=== PATIENT | female | born 1960 | race Caucasian/White ===

== ENCOUNTER 2020-12-30 17:10 | Inpatient (IN) | payer BC ==
[~2020-12-30] VITALS: Ht 157.5 cm; Wt 68.0 kg
[2020-12-30] MEDS ORDERED: ONDANSETRON HCL/PF 4 MG/2 ML VIAL ONE (17:25)
[2020-12-30] MEDS ORDERED: DEXAMETHASONE SOD PHOSPHATE 10 MG/ML VIAL ONE (17:25)
[2020-12-30] MEDS ORDERED: IV NS 0.9% 1,000 ML BAG IV ONE (17:30)
[2020-12-30] MEDS ORDERED: ONDANSETRON HCL/PF 4 MG/2 ML VIAL IVP ONE (17:30)
[2020-12-30] MEDS ORDERED: DEXAMETHASONE SOD PHOSPHATE 6 MG in IV D5W 50 ML IV ONE (17:30)
--- NOTE | 2020-12-30 17:48 | NUR ---
MABLE FROM HOME TO ER BED 5. AAOX4. NOT IN RESP DISTRESS BUT NOTED SATTING @ 92% ON RA. BROUGHT IN FOR WEAKNESS. PER PT, SHE HAS BEEN COVID POSITIVE SINCE SATURDAY LAST WEEK. PT IS HERE BECAUSE SHE IS CONCERNED THAT SHE MIGHT BE DEHYDRATED. PT IS NOTED TACHYCARDIC 110S. WAS AT THE BEDSIDE FOR EVAL. ORDERS RECEIVED, NOTED AND CARRIED OUT.
[2020-12-30 17:56] LABS: BASOPHILS # (AUTO) 0.1 K/uL (0.0-0.2); BASOPHILS % (AUTO) 1.8 % (0.0-2.0); HEMATOCRIT 36 % (33-45); HEMOGLOBIN 12.5 g/dL (11.5-14.8); LYMPHOCYTES # (AUTO) 0.7 K/uL (0.8-4.8); LYMPHOCYTES % (AUTO) 14.1 % (20.0-44.0); MEAN CORPUSCULAR HGB CONC 35 g/dl (31.0-36.0); MEAN CORPUSCULAR VOLUME 86 fL (82-100); MONOCYTES # (AUTO) 0.3 K/uL (0.1-1.30); MONOCYTES % (AUTO) 6.8 % (2.0-12.0); NEUTROPHILS # (AUTO) 3.6 K/uL (1.8-8.9); NEUTROPHILS % (AUTO) 77.3 % (43.0-81.0); PLATELET COUNT (AUTO) 194 K/uL (150-450); RED BLOOD CELL COUNT(AUTO) 4.22 MIL/uL (4.0-5.2); WHITE BLOOD COUNT (AUTO) 4.6 K/uL (4.3-11.0)
[2020-12-30 18:08] LABS: ALBUMIN 3.3 g/dL (3.4-5.0); BILIRUBIN,TOTAL 0.7 mg/dL (0.2-1.0); CALCIUM, SERUM 8.8 mg/dL (8.5-10.1); TOTAL PROTEIN, SERUM 7.7 g/dL (6.4-8.2)
[2020-12-30] MEDS ORDERED: AZITHROMYCIN 500 MG in IV D5W 250 ML IV ONE (19:00)
--- NOTE | 2020-12-30 19:01 | NUR ---
PT WAS AMBULATED AROUND THE ROOM ON ROOM AIR TO CHECK IF PT'S O2 WILL DROP. PT WAS NOTED HAVING O2 SAT OF LOW 86% ON RA. MD MADE AWARE OF FINDINGS. PT PLACED ON O2 VIA NC AND NOW SATTING @ 94-95%. WILL CONTINUE TO MONITOR
[2020-12-30] MEDS ORDERED: ENOXAPARIN SODIUM 80 MG/0.8 ML DISP.SYRIN SQ SCH ×2 (19:15→19:16)
--- NOTE | 2020-12-30 19:24 | NUR ---
blood drawn at bedside including blood culture.
--- NOTE | 2020-12-30 19:25 | NUR ---
DR. UNDERWOOD PAGED PER ABBY LANE ORDER.
[2020-12-30] MEDS ORDERED: ENOXAPARIN SODIUM 80 MG/0.8 ML DISP.SYRIN SQ ONE (19:30)
--- NOTE | 2020-12-30 19:34 | NUR ---
ABBY LANE TALKING TO DR. UNDERWOOD REGARDING PT ADMISSION.
--- NOTE | 2020-12-30 19:37 | NUR ---
RT NORMA PERFORMED, INSURANCE UNDERWRITING ASSISTANTDEREK POWELL AND DR MÁRQUEZ INFORMED OF RESULTS.
--- NOTE | 2020-12-30 19:45 | NUR ---
[place], [facility] - [phone]
--- NOTE | 2020-12-30 19:56 | NUR ---
FLU SWAB DONE AND SENT TO LAB
[2020-12-30 19:58] LABS: ABG BASE EXCESS -1.4 mmol/L; ABG OXYGEN SATURATION 93.7 % (92.0-98.5); ABG PCO2 32.9 mmHg (35.0-45.0); ABG PH 7.444 (7.350-7.450); ABG PO2 72.5 mmHg (75.0-100.0); AaDO2 88.3 mmHg; COHb 0.3 % (0.5-1.5); MetHb 0.4 % (0.0-1.5); SITE, ABG Right Radial; VENT MODE, BG NASAL CANNULA
[2020-12-30] MEDS ORDERED: ACETAMINOPHEN ES 500 MG TABLET ONE (19:58)
[2020-12-30] MEDS ORDERED: ACETAMINOPHEN ES 500 MG TABLET PO ONE (20:00)
--- NOTE | 2020-12-30 20:00 | NUR ---
PT VERBALIZED THAT SHE FEELS HE IS HAVING A FEVER. UPON CHECKING TEMP, ORAL TEMP WAS NOTD @ 102.0. MADE AWARE AND OBTAINED ORDER FOR TYLENOL. NOTED AND CARRIED OUT
[2020-12-30 20:17] LABS: D-DIMER 0.36 mg/L(FEU (0.17-0.50)
[2020-12-30 20:22] LABS: BILIRUBIN,URINE Negative (NEGATIVE); COLOR,URINE YELLOW (YELLOW); LEUKOCYTE ESTERASE ,URINE Negative (NEGATIVE); NITRITE, URINE Negative (NEGATIVE); PH,URINE 5.5 (5.0-8.0); PROTEIN,URINE 30 mg/dl (NEGATIVE); UGLUCOSE Negative (NEGATIVE); UROBILINOGEN,URINE 0.2 EU/dL (0.2)
[2020-12-30 20:30] LABS: BACTERIA,URINE Rare /HPF (None Seen); RBC,URINE NONE SEEN /HPF (0-2); SQUAMOUS EPITHELIAL CELL,UR Few /HPF (None Seen); WBC,URINE NONE SEEN /HPF (0-3)
[2020-12-30 20:37] LABS: CREATINE KINASE, TOTAL 39 U/L (26-192); FERRITIN 288 ng/mL (8-388)
--- NOTE | 2020-12-30 21:20 | NUR ---
TELE 105
[2020-12-30 21:24] LABS: C-REACTIVE PROTEIN 6.2 mg/dL (0.0-0.9)
--- NOTE | 2020-12-30 21:51 | NUR ---
RN NOTES RECEIVED ER ADMISSION REPORT FROM DEREK POWELL. ALL PERTINENT ADMISSION INFO REGARDING PT NOTED. WILL WAIT FOR PT TO BE TRANSFERRED TO UNIT AND ADDRESS NEEDS ACCORDINGLY. ESCALATOR INSTALLER MADE AWARE.
--- NOTE | 2020-12-30 21:52 | NUR ---
REPORT GIVEN TO DEREK LAKHANI FOR LUISA
--- NOTE | 2020-12-30 22:05 | NUR ---
RN NOTES RECEIVED PT FROM ER VIA [place] ACCOMPANIED BY 2 ER STAFF AND PT ASSISTED GOING TO BED . PT IS A&OX4 AND AMBULATORY; PATIENT ON 4L OF 02 VIA NC WITH RESPIRATIONS EVEN AND UNLABORED. COMPREHENSIVE PHYSICAL ASSESSMENT AND PATIENT CARE DONE. CALL LIGHT WITHIN REACH, SAFETY MEASURES AND ISOLATION PRECAUTION IN PLACE, WILL CONTINUE MONITOR AND ASSESS THROUGHOUT THE SHIFT. WILL CARRY OUT MD ORDERS ACCORDINGLY. HUMAN RESOURCES RECEPTIONIST MADE AWARE.
[2020-12-30 22:10] VITALS: BP 134/80
--- NOTE | 2020-12-30 22:10 | NUR ---
RN NOTES INFORMED DR. RODRIGUEZ THAT PT JUST GOT ADMITTED IN THE UNIT. WAITING FOR FURTHER ORDERS. ONCE RECEIVED WILL CARRY OUT SCHEDULED.
--- NOTE | 2020-12-30 22:15 | NUR ---
PT TRANSPORTED [place] WITH EMT AND RN AT BEDSIDE W/ ACLS PROTOCOL. NAD NOTED DURING TRANSPORT. PT AMBULATED FROM GURNEY TO BED ON [facility].
[2020-12-30] MEDS ORDERED: ZOLPIDEM TARTRATE 5 MG TABLET PO PRN (23:00)
[2020-12-30] MEDS ORDERED: HYDROCODONE/APAP 5/325MG TABLET PO PRN (23:00)
[2020-12-30] MEDS ORDERED: ALBUTEROL SULFATE INH 18 GM HFA.AER.AD IH PRN (23:00)
[2020-12-30] MEDS ORDERED: MAGNESIUM HYDROXIDE 30 ML UDC PO PRN (23:00)
[2020-12-30] MEDS ORDERED: ONDANSETRON HCL/PF 4 MG/2 ML VIAL IVP PRN (23:00)
[2020-12-30] MEDS ORDERED: ENOXAPARIN SODIUM 40 MG/0.4 ML DISP.SYRIN SQ SCH (23:00)
[2020-12-31] VITALS: BP 116/85
--- NOTE | 2020-12-31 00:30 | NUR ---
RN NOTES RECEIVED CALL FROM [facility] VERIFYING MD'S ORDER FOR LOVENOX 70MG Q24H VS 40MG Q12H. COMMUNICATE WITH MAYANK LANE AND VERIFIED THAT LOVENOX FOR TREATMENT & CONTINUE 40MG Q12H AND [facility] FOR ADJUSTMENT AND DOSING. CALLED ( [facility] AND PROVIDED INFO PER MAYANK LANE (DR. RODRIGUEZ). GRIS ACKNOWLEDGED. CLINICAL RESEARCH DIRECTOR MADE AWARE.
[2020-12-31 06:21] LABS: BASOPHILS % (AUTO) 0.1 % (0.0-2.0); HEMATOCRIT 36 % (33-45); HEMOGLOBIN 12.7 g/dL (11.5-14.8); LYMPHOCYTES # (AUTO) 0.4 K/uL (0.8-4.8); LYMPHOCYTES % (AUTO) 15.3 % (20.0-44.0); MEAN CORPUSCULAR HGB CONC 35 g/dl (31.0-36.0); MEAN CORPUSCULAR VOLUME 85 fL (82-100); MONOCYTES # (AUTO) 0.2 K/uL (0.1-1.30); MONOCYTES % (AUTO) 6.7 % (2.0-12.0); NEUTROPHILS # (AUTO) 2.2 K/uL (1.8-8.9); NEUTROPHILS % (AUTO) 77.9 % (43.0-81.0); PLATELET COUNT (AUTO) 179 K/uL (150-450); RED BLOOD CELL COUNT(AUTO) 4.25 MIL/uL (4.0-5.2); WHITE BLOOD COUNT (AUTO) 2.9 K/uL (4.3-11.0)
[2020-12-31 06:31] LABS: ALANINE AMINOTRANSFERASE 43 U/L (12-78); ALKALINE PHOSPHATASE 49 U/L (46-116); ASPARTATE AMINOTRANSFERASE 44 U/L (15-37); BILIRUBIN,TOTAL 0.7 mg/dL (0.2-1.0); CALCIUM, SERUM 8.6 mg/dL (8.5-10.1); CARBON DIOXIDE 27 mmol/L (21-32); CHLORIDE 103 mmol/L (98-107); CREATININE 0.8 mg/dL (0.6-1.3); GLUCOSE 140 mg/dL (74-106); MAGNESIUM 2.4 mg/dL (1.8-2.4); PHOSPHORUS 4.1 mg/dL (2.5-4.9); POTASSIUM 4.2 mmol/L (3.5-5.1); SODIUM SERUM 140 mmol/L (136-145); TOTAL PROTEIN, SERUM 7.3 g/dL (6.4-8.2); UREA NITROGEN, BLOOD 13 mg/dL (7-18)
[2020-12-31 06:34] LABS: FERRITIN 307 ng/mL (8-388)
--- NOTE | 2020-12-31 06:46 | NUR ---
RN CLOSING NOTE: PATIENT REMAINS IN ROOM IN NO SIGNS OF RESPIRATORY DISTRESS, PATIENT ON 4L OF 02 VIA NC ;TOLERATING WELL SATURATING @ >95% SP02. SAFETY MEASURES IMPLEMENTED, BED IN LOWEST POSITION, LOCKED, SIDE RAILS UP, CALL LIGHT WITHIN REACH. ALL NEEDS AND ORDERS ADDRESSED DURING THE SHIFT. IV ACCESS MAINTAINED INTACT, SECURED AND FLUSHING WELL. ALL DUE MEDS GIVEN ORDERED & SCHEDULED ; PATIENT TOLERATED WELL. PATIENT KEPT CLEAN & COMFORTABLE WITHIN THE SHIFT. PATIENT ENDORSED TO INCOMING SHIFT RN WITH STABLE VITAL SIGN AND FOR CONTINUITY OF CARE.
--- NOTE | 2020-12-31 07:41 | NUR ---
TRUCK RENTAL MANAGER OPENING NOTES RECEIVED PATIENT IN BED, AWAKE, A/O X4. PATIENT ON OXYGEN THERAPY @ 4 LPM VIA NASAL CANULA; BREATHING EVEN AND UNLABORED, NO SOB PRESENT AT THIS TIME. TELE MONITOR WITH A CURRENT READING OF ST 108. NO COMPLAINS OF PAIN. IV ACCESS ON L HAND G #20, SL PRESENT AND INTACT. SAFETY PRECAUTIONS IN PLACE; BED IN LOW POSITION AND LOCKED, RAILS UP X2, CALL LIGHT WITHIN REACH. WILL CONTINUE TO MONITOR PATIENT.
[2020-12-31] MEDS: PANTOPRAZOLE 40 MG TABLET.DR PO SCH (08:29)
[2020-12-31] MEDS: DEXAMETHASONE SOD PHOSPHATE 10 MG/ML VIAL IV SCH (08:29)
[2020-12-31] MEDS: AZITHROMYCIN 500 MG in IV D5W 250 ML IV SCH (08:30)
[2020-12-31 08:32] LABS: LYMPHOCYTES % (MANUAL) 20 % (16-48); MONOCYTES % (MANUAL) 3 % (0-11.0); NEUTROPHILS % (MANUAL) 77 (42-76)
[2020-12-31] MEDS: ENOXAPARIN SODIUM 80 MG/0.8 ML DISP.SYRIN SQ SCH ×2 (08:32→20:42)
[2020-12-31 09:16] VITALS: BP 154/95
[2020-12-31] MEDS ORDERED: ONDA4TAB11 PO (10:20)
[2020-12-31] MEDS ORDERED: ASCO500T20 PO (10:20)
[2020-12-31] MEDS ORDERED: HYDR200T4 PO (10:20)
[2020-12-31] MEDS ORDERED: COLC0.6C3 PO (10:20)
[2020-12-31] MEDS ORDERED: BUDE0.5A4 NEB (10:20)
[2020-12-31] MEDS ORDERED: DOXY100C2 PO (10:20)
[2020-12-31] MEDS ORDERED: CHOL100062 PO (10:20)
[2020-12-31] MEDS ORDERED: MONT10TA22 PO (10:20)
[2020-12-31] MEDS ORDERED: ZINC1CAP3 PO (10:20)
[2020-12-31 12:07] VITALS: BP 140/89
[2020-12-31] MEDS: ACETAMINOPHEN 325 MG TABLET PO PRN (12:43)
--- NOTE | 2020-12-31 12:48 | NUR ---
MILIEU TECHNICIAN NOTES PATIENT COMPLAINING OF HEADACHE AND BODY ACHES. PRN TYLENOL ADMINISTERED. WILL CONTINUE TO MONITOR.
--- NOTE | 2020-12-31 14:48 | NUR ---
[employer] NOTES PATIENT REQUESTING TO ADD CERTAIN VITAMINS AND MEDICATIONS TO HER LIST OF MEDS. PRIMARY MADE AWARE. PER MD OK TO ADD.
[2020-12-31] MEDS: CHOLECALCIFEROL 1,000 UNIT TABLET (VIT D3) PO SCH (15:18)
[2020-12-31] MEDS ORDERED: REMDESIVIR (CHARGED) 200 MG, *LOADING DOSE 1 EA in IV NS 0.9% 210 ML IV ONE (15:30)
[2020-12-31 15:58] LABS: C-REACTIVE PROTEIN 6.6 mg/dL (0.0-0.9)
[2020-12-31] MEDS: ASCORBIC ACID 500 MG TABLET PO SCH (16:20)
[2020-12-31 17:13] VITALS: BP 130/89
--- NOTE | 2020-12-31 18:40 | NUR ---
MANAGEMENT SME CLOSING NOTES PATIENT REMAINS IN BED, AWAKE, A/O X4. PATIENT ON OXYGEN THERAPY @ 4 LPM VIA NASAL CANULA; BREATHING EVEN AND UNLABORED, NO SOB PRESENT DURING THE DAY. TELE MONITOR WITH A CURRENT READING OF SR. HEADACHE AND BODY PAIN TREATED WITH PRN TYLENOL. IV ACCESS ON L HAND G #20, SL PRESENT AND INTACT. ALL NEEDS ATTENDED DURING THE DAY. SAFETY PRECAUTIONS IN PLACE; BED IN LOW POSITION AND LOCKED, RAILS UP X2, CALL LIGHT WITHIN REACH. WILL ENDORSE TO DAIRY LABORATORY TECHNICIAN NURSE.
--- NOTE | 2020-12-31 19:30 | NUR ---
RN OPENING NOTES: RECEIVED PT A/OX4 IN BED RESTING COMFORTABLY. PATIENT IN NO S/SX OF ACUTE DISTRESS AT THIS TIME. NO SOB NOTED. PATIENT'S BREATHING IS EVEN AND UNLABORED. PATIENT IS ON 4L OF OXYGEN VIA NC; TOLERATING WELL. PATIENT ON REGULAR DIET; TOLERATES WELL. NOTED IV SITE ON L HAND#20 ; PATENT, INTACT AND FLUSHING WELL; NO S/S OF INFECTION OR INFILTRATION.SAFETY MEASURES HAVE BEEN PROVIDED AND IMPLEMENTED. PATIENT BED ALARM IS ON. HEAD OF BED ELEVATED. BED IS LOCKED, IN LOWEST POSITION AND SIDE RAILS UP. CALL LIGHT WITHIN REACH OF THE PATIENT. APPLICABLE ISOLATION PRECAUTIONS IN PLACE. WILL CONTINUE TO MONITOR AND REASSESS FOR ANY CHANGES AND WILL CARRY OUT ANY ONGOING AND ACTIVE MD ORDER.
[2020-12-31 20:00] VITALS: BP 129/78
[2020-12-31] MEDS: MONTELUKAST SODIUM (10MG) 10 MG TABLET PO SCH (21:02)
[2021-01-01] VITALS: BP_SYST 139; BP_DIAS 86; BP_DIAS 90
--- NOTE | 2021-01-01 00:05 | NUR ---
RN NOTES NOTED PT'S TEMP IS AT 99.4@0000; COOLING MEASURES RENDERED.WILL CONTINUE TO MONITOR AND ASSESS THROUGHOUT THE SHIFT.
--- NOTE | 2021-01-01 01:40 | NUR ---
RN NOTES PATIENT ADVISED RN THAT SHE IS HAVING SOME MILD HEADACHE AND FEELING A COLD, TEMP CHECKED TEMP IS AT 99.2 AT THIS TIME. PRN MEDICATION (TYLENOL) GIVEN FOR MILD PAIN AND FEVER. WILL CONTINUE TO ASSESS AND MONITOR. PATIENT. ALSO ASK TO INFORM MD ABOUT HER 2 ADDITIONAL HOME MEDS TO BE IN HER MEDICATION LIST m ACETYL-CYSTINE 600MG;DAILY AND REGENERON (UNKNOWN DOSAGE) MAYANK LANE INFORMED AND AGREED. WATCH PARTS GRINDER MADE AWARE. Addendum: 01/01/21 at 0237 by ARNIE ORTEGA RN WILL ENDORSE TO AM SHIFT RN FOR FOLLOW THROUGH ABOUT DETAILS HOME MEDICATION: REGENERON (DOSAGE AND FREQUENCY SO TO BE ADDED ON PT'S MED LIST.
[2021-01-01] MEDS: ACETAMINOPHEN 325 MG TABLET PO PRN (01:41)
[2021-01-01] MEDS ORDERED: ACET600C5 PO (02:17)
[2021-01-01 04:00] VITALS: BP 125/82
[2021-01-01 07:21] LABS: HEMATOCRIT 35 % (33-45); HEMOGLOBIN 12.2 g/dL (11.5-14.8); LYMPHOCYTES # (AUTO) 0.7 K/uL (0.8-4.8); MEAN CORPUSCULAR HGB CONC 35 g/dl (31.0-36.0); MEAN CORPUSCULAR VOLUME 85 fL (82-100); MONOCYTES # (AUTO) 0.5 K/uL (0.1-1.30); MONOCYTES % (AUTO) 6.8 % (2.0-12.0); NEUTROPHILS # (AUTO) 6.7 K/uL (1.8-8.9); NEUTROPHILS % (AUTO) 84.2 % (43.0-81.0); PLATELET COUNT (AUTO) 215 K/uL (150-450); RED BLOOD CELL COUNT(AUTO) 4.09 MIL/uL (4.0-5.2)
[2021-01-01] MEDS: PANTOPRAZOLE 40 MG TABLET.DR PO SCH (07:40)
[2021-01-01 07:42] LABS: CREATININE 0.7 mg/dL (0.6-1.3)
[2021-01-01] MEDS: AZITHROMYCIN 500 MG in IV D5W 250 ML IV SCH (07:45)
[2021-01-01 07:54] LABS: CALCIUM, SERUM 8.9 mg/dL (8.5-10.1)
[2021-01-01 08:37] VITALS: BP 124/78
[2021-01-01 08:48] LABS: ALBUMIN 2.8 g/dL (3.4-5.0); BILIRUBIN,DIRECT 0.2 mg/dL (0.0-0.2); BILIRUBIN,TOTAL 0.5 mg/dL (0.2-1.0); TOTAL PROTEIN, SERUM 7.1 g/dL (6.4-8.2)
[2021-01-01] MEDS: DEXAMETHASONE SOD PHOSPHATE 10 MG/ML VIAL IV SCH (09:18)
[2021-01-01] MEDS: COLCHICINE 0.6 MG TABLET PO SCH (09:18)
[2021-01-01] MEDS: ASCORBIC ACID 500 MG TABLET PO SCH ×2 (09:18→16:08)
[2021-01-01] MEDS: ZINC SULFATE 220 MG CAPSULE PO SCH (09:19)
[2021-01-01] MEDS: CHOLECALCIFEROL 1,000 UNIT TABLET (VIT D3) PO SCH (09:19)
[2021-01-01] MEDS: ENOXAPARIN SODIUM 80 MG/0.8 ML DISP.SYRIN SQ SCH (09:20)
[2021-01-01 11:01] LABS: MAGNESIUM 2.7 mg/dL (1.8-2.4); PHOSPHORUS 4.5 mg/dL (2.5-4.9)
[2021-01-01] MEDS ORDERED: [UNRECOGNIZED DRUG - OTHER] IV (11:45)
[2021-01-01 12:00] VITALS: BP 130/82
[2021-01-01] MEDS ORDERED: REMDESIVIR (CHARGED) 100 MG in IV NS 0.9% 230 ML IV SCH (14:00)
[2021-01-01 16:00] VITALS: BP 127/83
[2021-01-01] MEDS: REMDESIVIR (CHARGED) 100 MG in IV NS 0.9% 100 ML IV SCH (16:08)
[2021-01-01 16:30] LABS: C-REACTIVE PROTEIN 3.1 mg/dL (0.0-0.9)
--- NOTE | 2021-01-01 16:48 | NUR ---
Pt up in chair, visiting with visitor at her window and talking via phone. VSS on 4L/NC.
--- NOTE | 2021-01-01 19:30 | NUR ---
RN NOTE RECEIVED PATIENT IN BED. A/OX3. ON OXYGEN 4L/MIN VIA NASAL CANNULA. RESPIRATIONS ARE EVEN AND UNLABORED. NO S/S SOB NOTED. NO C/O PAIN AT THIS TIME. EXTERNAL TELE MONITOR READS SINUS RHYTHM. INNO APPARENT DISTRESS. IV ACCESS IN LEFT HAND #20 PATENT AND SALINE LOCKED. BED IS LOW AND LOCKED, HOB ELEVATED IN SEMI FOWLRES, SIDE RIALS UP X2, CALL LIGHT WITHIN REACH. WILL CONTINUE TO MONITOR THROUGHOUT SHIFT.
[2021-01-01 20:00] VITALS: BP 134/89
--- NOTE | 2021-01-01 20:45 | NUR ---
RN NOTE INFORMED THAT PATIENT IS REQUESTING MEDICATIONS THAT A FAMILY FRIEND WHO IS A MD IS ENCOURAGING HER TO TAKE. DR. CARLINE LIM IS ENCOURAGING PATIENT TO ASK FOR AN SHE IS REQUESTING FOR INHALED BUDESONIDE 0.5MG/2ML Q6HR NEB, 36MG IVERMECTIN ONE TIME DOSE, AND REGENERON 600MG IV OVER 2HOURS ONE TIME. PATIENT IS VERY ADAMANT ABOUT RECEIVING THESE MEDICATIONS, STATES SHE WILL WANT TO CHANGE DRS IF REQUEST ARE NOT FULFILLED. DR. RODRIGUEZ STATES ITS BEST TO ADDRESS THESE CONCERNS WITH TOMORROWS DAY SHIFT RN THE INFECTIOUS DISEASE DOCTOR AND DYE WORKER WILL BE ROUNDING. PATIENT AGREES TO FOLLOW UP WITH DAY TIME RN AND STAFF.
[2021-01-01] MEDS: MONTELUKAST SODIUM (10MG) 10 MG TABLET PO SCH (21:07)
[2021-01-01] MEDS: ENOXAPARIN SODIUM 40 MG/0.4 ML DISP.SYRIN SQ SCH (21:08)
[2021-01-02] VITALS: BP 139/90
[2021-01-02 04:00] VITALS: BP 138/83
[2021-01-02] MEDS: ACETAMINOPHEN 325 MG TABLET PO PRN (05:00)
[2021-01-02 06:44] LABS: BASOPHILS % (AUTO) 0.1 % (0.0-2.0); HEMATOCRIT 35 % (33-45); HEMOGLOBIN 12.3 g/dL (11.5-14.8); LYMPHOCYTES # (AUTO) 0.5 K/uL (0.8-4.8); LYMPHOCYTES % (AUTO) 10.6 % (20.0-44.0); MEAN CORPUSCULAR HGB CONC 35 g/dl (31.0-36.0); MEAN CORPUSCULAR VOLUME 85 fL (82-100); MONOCYTES # (AUTO) 0.6 K/uL (0.1-1.30); MONOCYTES % (AUTO) 11.1 % (2.0-12.0); NEUTROPHILS # (AUTO) 4.1 K/uL (1.8-8.9); NEUTROPHILS % (AUTO) 78.2 % (43.0-81.0); PLATELET COUNT (AUTO) 233 K/uL (150-450); RED BLOOD CELL COUNT(AUTO) 4.15 MIL/uL (4.0-5.2); WHITE BLOOD COUNT (AUTO) 5.2 K/uL (4.3-11.0)
[2021-01-02 07:07] LABS: ALBUMIN 2.8 g/dL (3.4-5.0); BILIRUBIN,DIRECT 0.2 mg/dL (0.0-0.2); BILIRUBIN,TOTAL 0.5 mg/dL (0.2-1.0); CALCIUM, SERUM 8.3 mg/dL (8.5-10.1); CREATININE 0.8 mg/dL (0.6-1.3); POTASSIUM 3.8 mmol/L (3.5-5.1); TOTAL PROTEIN, SERUM 6.9 g/dL (6.4-8.2)
--- NOTE | 2021-01-02 07:10 | NUR ---
RN OPENING NOTES RECEIVED PT RESTING IN BED. A/O X3. ON O2 6L/MIN VIA NASAL CANNULA. NO SOB OR ANY S/S OF RESPIRATORY DISTRESS. TELE MONITOR READS SINUS RHYTHM. IV AT LEFT HAND #20, INTACT AND FLUSHING WELL. NO PAIN REPORTED AT THIS TIME. SAFETY MEASURES IN PLACE. CALL LIGHT WITHIN REACH. BED LOCKED AND IN LOWEST POSITION WITH SIDE RIALS UP X2. WILL CONTINUE TO MONITOR.
--- NOTE | 2021-01-02 07:24 | NUR ---
RN NOTE ON COVID ISOLATION. PATIENT RESTING IN BED. A/OX3. NOW ON OXYGEN 6L/MIN VIA NASAL CANNULA.NO RESP DISTRESS EXPERIENCED, GRADUAL DESAT OVER THE SHIFT. 91% ON 4L NC. MANAGED HEADACHE WITH TYLENOL. TELE MONITOR IS SINUS RHYTHM. NO DISTRESS. IV IN LEFT HAND #20. BED REMAINS LOW AND LOCKED, HOB ELEVATED IN SEMI FOWLERS, SIDE RIALS UP X2, CALL LIGHT WITHIN REACH. EXPRESSED PATIENT DESIRE FOR MEDICATION TO AM RN. WILL ENDORSE TO ONCOMING SHIFT.
[2021-01-02 08:00] VITALS: BP 140/74
[2021-01-02] MEDS: AZITHROMYCIN 500 MG in IV D5W 250 ML IV SCH (08:36)
[2021-01-02] MEDS: ZINC SULFATE 220 MG CAPSULE PO SCH (08:37)
[2021-01-02] MEDS: DEXAMETHASONE SOD PHOSPHATE 10 MG/ML VIAL IV SCH (08:37)
[2021-01-02] MEDS: ASCORBIC ACID 500 MG TABLET PO SCH ×2 (08:37→16:38)
[2021-01-02] MEDS: COLCHICINE 0.6 MG TABLET PO SCH (08:37)
[2021-01-02] MEDS: CHOLECALCIFEROL 1,000 UNIT TABLET (VIT D3) PO SCH (08:37)
[2021-01-02] MEDS: PANTOPRAZOLE 40 MG TABLET.DR PO SCH (08:38)
[2021-01-02] MEDS: ENOXAPARIN SODIUM 40 MG/0.4 ML DISP.SYRIN SQ SCH ×2 (08:39→21:32)
--- NOTE | 2021-01-02 11:07 | NUR ---
CALLED TELEMETRY FLOOR ABOUT COVID PCR RESULT.
[2021-01-02 12:00] VITALS: BP 130/86
[2021-01-02 14:41] LABS: C-REACTIVE PROTEIN 2.3 mg/dL (0.0-0.9)
[2021-01-02 16:00] VITALS: BP 123/78
[2021-01-02] MEDS: REMDESIVIR (CHARGED) 100 MG in IV NS 0.9% 100 ML IV SCH (16:37)
--- NOTE | 2021-01-02 18:49 | NUR ---
RN CLOSING NOTES NO SIGNIFICANT CHANGES THROUGHOUT THE SHIFT. NO SOB OR ANY DISTRESS. NO PAIN REPORTED AT THIS TIME. ALL DUE MEDS GIVEN. NEEDS ATTENDED. KEPT CLEAN AND COMFORTABLE. SAFETY MEASURES IN PLACE. WILL ENDORSE TO NIGHT RN FOR LUISA.
--- NOTE | 2021-01-02 19:39 | NUR ---
CRISTOBAL/RN RECEIVED PATIENT AWAKE, ALERT ORIENTED, COMFORTABLE, NO C/O PAIN, NO DISTRESS NOTED, HD IN PROGRESS, WILL BE DISCHARGED HOME TONIGHT. Addendum: 01/02/21 at 1941 by SCOTTIE HER RN PLS. DISREGARD ABOVE DOCUMENTATION. ENTERED BY MISTAKE.
[2021-01-02 20:00] VITALS: BP 127/77
--- NOTE | 2021-01-02 20:59 | NUR ---
CRISTOBAL/RN DURING INITIAL SHIFT ASSESSMENT, PATIENT WAS IN BED AWAKE, ALERT, ORIENTED, COMFORTABLE, NO C/O PAIN, NO DISTRESS NOTED, CALL LIGHT IN REACH, WILL MONITOR.
[2021-01-02] MEDS: MONTELUKAST SODIUM (10MG) 10 MG TABLET PO SCH (21:32)
--- NOTE | 2021-01-02 22:28 | NUR ---
CRISTOBAL/RN O2 SAT 88-90% AT 6L O2, TITRATED O2 TO 9L VIA SIMPLE MASK WITH O2 SAT 95-97%. WILL CONTINUE TO MONITOR.
--- NOTE | 2021-01-03 00:37 | NUR ---
CRISTOBAL/RN PATIENT IS SLEEPING AT THIS TIME, APPEAR COMFORTABLE, NO SIGNS OF DISTRESS NOTED, CALL LIGHT IN REACH, WILL CONTINUE TO MONITOR.
[2021-01-03 00:59] VITALS: BP 129/78
[2021-01-03 04:13] VITALS: BP 136/79
[2021-01-03 06:03] LABS: D-DIMER 0.23 mg/L(FEU (0.17-0.50)
--- NOTE | 2021-01-03 06:06 | NUR ---
CRISTOBAL/RN PATIENT IS SLEEPING, APPEAR COMFORTABLE, NO SIGNS OF DISTRESS NOTED, CALL LIGHT IN REACH, ALL NEEDS ATTENDED AT THIS TIME, WILL CONTINUE TO MONITOR.
[2021-01-03 06:32] LABS: ALBUMIN 2.8 g/dL (3.4-5.0); BILIRUBIN,DIRECT 0.2 mg/dL (0.0-0.2); BILIRUBIN,TOTAL 0.6 mg/dL (0.2-1.0); CALCIUM, SERUM 8.6 mg/dL (8.5-10.1); CREATININE 0.8 mg/dL (0.6-1.3); MAGNESIUM 2.5 mg/dL (1.8-2.4); PHOSPHORUS 4.4 mg/dL (2.5-4.9); POTASSIUM 3.9 mmol/L (3.5-5.1); TOTAL PROTEIN, SERUM 6.7 g/dL (6.4-8.2)
[2021-01-03 06:49] LABS: CREATINE KINASE, TOTAL 25 U/L (26-192); FERRITIN 314 ng/mL (8-388)
--- NOTE | 2021-01-03 07:20 | NUR ---
RN NOTE PATIENT OBSERVED IN BED ALERT AWAKE ALERT AND ORIENTED X4 ABLE TO VERBALIZE NEEDS, ON O2 VIA NC @6LPM O2 SAT OF 94% BREATHING EVEN AND UNLABORED, AMBULATORY CONTINENT BOWEL AND BLADDER, ON TELE MONITOR SR WITH HR OF 91 WITH IV SITE ON LEFT HAND GAUGE 20 PATENT INFUSING WELL, WILL [id number] TO MONITOR, SAFETY MEASURE OBSERVED, BED WHEELS LOCK, CALL LIGHT WITHIN REACH.
[2021-01-03 08:00] VITALS: BP 134/72
[2021-01-03 08:09] LABS: BASOPHILS % (AUTO) 0.2 % (0.0-2.0); HEMATOCRIT 36 % (33-45); HEMOGLOBIN 12.2 g/dL (11.5-14.8); LYMPHOCYTES # (AUTO) 0.8 K/uL (0.8-4.8); LYMPHOCYTES % (AUTO) 11.6 % (20.0-44.0); MEAN CORPUSCULAR HGB CONC 34 g/dl (31.0-36.0); MEAN CORPUSCULAR VOLUME 85 fL (82-100); MONOCYTES # (AUTO) 0.7 K/uL (0.1-1.30); MONOCYTES % (AUTO) 11.2 % (2.0-12.0); PLATELET COUNT (AUTO) 263 K/uL (150-450); WHITE BLOOD COUNT (AUTO) 6.5 K/uL (4.3-11.0)
[2021-01-03] MEDS: COLCHICINE 0.6 MG TABLET PO SCH (08:17)
[2021-01-03] MEDS: CHOLECALCIFEROL 1,000 UNIT TABLET (VIT D3) PO SCH (08:17)
[2021-01-03] MEDS: PANTOPRAZOLE 40 MG TABLET.DR PO SCH (08:17)
[2021-01-03] MEDS: ASCORBIC ACID 500 MG TABLET PO SCH ×2 (08:17→17:05)
[2021-01-03] MEDS: DEXAMETHASONE SOD PHOSPHATE 10 MG/ML VIAL IV SCH (08:18)
[2021-01-03] MEDS: ENOXAPARIN SODIUM 40 MG/0.4 ML DISP.SYRIN SQ SCH ×2 (08:20→21:09)
[2021-01-03] MEDS: AZITHROMYCIN 500 MG in IV D5W 250 ML IV SCH (09:30)
[2021-01-03 09:40] LABS: LYMPHOCYTES % (MANUAL) 11 % (16-48); MONOCYTES % (MANUAL) 11 % (0-11.0); NEUTROPHILS % (MANUAL) 78 (42-76)
[2021-01-03] MEDS: ZINC SULFATE 220 MG CAPSULE PO SCH (10:17)
[2021-01-03 12:00] VITALS: BP 127/79
[2021-01-03 16:00] VITALS: BP 127/79
[2021-01-03] MEDS: REMDESIVIR (CHARGED) 100 MG in IV NS 0.9% 100 ML IV SCH (16:10)
--- NOTE | 2021-01-03 19:16 | NUR ---
RN NOTE PATIENT OBSERVED IN BED ALERT AWAKE ALERT AND ORIENTED X4 ABLE TO VERBALIZE NEEDS, ON DVT PPX NO BLEEEDING NOTED, ON O2 VIA NC @5LPM O2 SAT OF 95% BREATHING EVEN AND UNLABORED, AMBULATORY CONTINENT BOWEL AND BLADDER, ON TELE MONITOR SR WITH HR OF 91 WITH IV SITE ON LEFT HAND GAUGE 22 PATENT INFUSING WELL, PATIENT ON REMDEVISVER NO ASE NOTED. WILL [id number] TO MONITOR, SAFETY MEASURE OBSERVED, BED WHEELS LOCK, CALL LIGHT WITHIN REACH. WILL ENDORSE TO NOC SHIFT
--- NOTE | 2021-01-03 19:50 | NUR ---
RN NOTE PATIENT A/O X4 ABLE TO VERBALIZE NEEDS AND CONCERNS, , ON O2 VIA NC @5LPM O2 SAT OF 95% BREATHING EVEN AND UNLABORED, NO SOB/DISTRESS NOTED, SR WITH ON TELE MONITOR WITH HR OF80S, BED LOCKED AND LOWEST POSITION, CALL LIGHT W/I REACH, ON STRICT COVID ISOLATION, WILL [id number] TO MONITOR CLOSELY.
[2021-01-03 20:00] VITALS: BP 120/79
[2021-01-03] MEDS: MONTELUKAST SODIUM (10MG) 10 MG TABLET PO SCH (21:09)
[2021-01-04] VITALS: BP 119/76
[2021-01-04 04:00] VITALS: BP 138/86
[2021-01-04 06:11] LABS: BASOPHILS % (AUTO) 0.5 % (0.0-2.0); HEMATOCRIT 35 % (33-45); HEMOGLOBIN 12.6 g/dL (11.5-14.8); LYMPHOCYTES % (AUTO) 13.6 % (20.0-44.0); MEAN CORPUSCULAR HGB CONC 36 g/dl (31.0-36.0); MEAN CORPUSCULAR VOLUME 84 fL (82-100); MONOCYTES # (AUTO) 0.7 K/uL (0.1-1.30); NEUTROPHILS # (AUTO) 5.7 K/uL (1.8-8.9); NEUTROPHILS % (AUTO) 75.9 % (43.0-81.0); PLATELET COUNT (AUTO) 284 K/uL (150-450); RED BLOOD CELL COUNT(AUTO) 4.19 MIL/uL (4.0-5.2); WHITE BLOOD COUNT (AUTO) 7.5 K/uL (4.3-11.0)
--- NOTE | 2021-01-04 06:30 | NUR ---
RN NOTE PATIENT IN BED ASLEEP, AROUSES TO VERBAL STIMULI, ON NC @5LPM O2 SAT > 94%, NO SOB/ACUTE DISTRESS NOTED DURING THE NIGHT, NO EPISODES OF DESATURATION, TOLERATED AMBULATION TO RESTROOM WITHOUT SOB, ALL SAFETY PRECAUTIONS IN PLACED, NO SIGNIFICANT CHANGE IN CONDITION, CALL LIGHT WITHIN REACH, WILL ENDORSE CONTINUITY OFF CARE TO ONCOMING NURSE.
[2021-01-04 06:52] LABS: ALBUMIN 2.8 g/dL (3.4-5.0); BILIRUBIN,DIRECT 0.1 mg/dL (0.0-0.2); BILIRUBIN,TOTAL 0.5 mg/dL (0.2-1.0); CALCIUM, SERUM 8.7 mg/dL (8.5-10.1); CREATININE 0.8 mg/dL (0.6-1.3); TOTAL PROTEIN, SERUM 6.7 g/dL (6.4-8.2)
--- NOTE | 2021-01-04 07:50 | NUR ---
RN NOTE PATIENT OBSERVED IN BED ALERT AWAKE ALERT AND ORIENTED X4 ABLE TO VERBALIZE NEEDS, ON DVT PPX NO BLEEDING NOTED, ON O2 VIA NC @5LPM O2 SAT OF 96% BREATHING EVEN AND UNLABORED, AMBULATORY CONTINENT BOWEL AND BLADDER, ON TELE MONITOR SR WITH HR OF 82 WITH IV SITE ON LEFT HAND GAUGE 22 PATENT INFUSING WELL, PATIENT ON REMDEVISVER NO ASE NOTED. WILL [id number] TO MONITOR, SAFETY MEASURE OBSERVED, BED WHEELS LOCK, CALL LIGHT WITHIN REACH. Addendum: 01/04/21 at 0750 by ASHLEY HI RN RN NOTE PATIENT OBSERVED IN BED ALERT AWAKE ALERT AND ORIENTED X4 ABLE TO VERBALIZE NEEDS, ON DVT PPX NO BLEEDING NOTED, ON O2 VIA NC @5LPM O2 SAT OF 96% BREATHING EVEN AND UNLABORED, AMBULATORY CONTINENT BOWEL AND BLADDER, ON TELE MONITOR SR WITH HR OF 82 WITH IV SITE ON LEFT HAND GAUGE 22 PATENT INFUSING WELL, PATIENT ON REMDESIVER NO ASE NOTED. WILL [id number] TO MONITOR, SAFETY MEASURE OBSERVED, BED WHEELS LOCK, CALL LIGHT WITHIN REACH.
[2021-01-04 08:00] VITALS: BP 138/86
[2021-01-04] MEDS: PANTOPRAZOLE 40 MG TABLET.DR PO SCH (08:06)
[2021-01-04] MEDS: ASCORBIC ACID 500 MG TABLET PO SCH ×2 (08:11→16:37)
[2021-01-04] MEDS: ZINC SULFATE 220 MG CAPSULE PO SCH (08:11)
[2021-01-04] MEDS: CHOLECALCIFEROL 1,000 UNIT TABLET (VIT D3) PO SCH (08:11)
[2021-01-04] MEDS: DEXAMETHASONE SOD PHOSPHATE 10 MG/ML VIAL IV SCH (08:11)
[2021-01-04] MEDS: ENOXAPARIN SODIUM 40 MG/0.4 ML DISP.SYRIN SQ SCH ×2 (08:11→21:30)
[2021-01-04] MEDS: COLCHICINE 0.6 MG TABLET PO SCH (08:11)
--- NOTE | 2021-01-04 09:00 | NUR ---
RN NOTE PATIENT SEEN BY DR. ADAMES, UPDATED MD REGARDING PATIENT CURRENT CONDITION.
[2021-01-04 12:00] VITALS: BP 127/81
[2021-01-04 16:00] VITALS: BP 131/82
[2021-01-04] MEDS: REMDESIVIR (CHARGED) 100 MG in IV NS 0.9% 100 ML IV SCH (16:37)
--- NOTE | 2021-01-04 18:47 | NUR ---
RN NOTE PATIENT OBSERVED IN BED ALERT AWAKE ALERT AND ORIENTED X4 ABLE TO VERBALIZE NEEDS, ON DVT PPX NO BLEEDING NOTED, ON O2 VIA NC @4LPM O2 SAT OF 96% BREATHING EVEN AND UNLABORED TOLERATING WELL, TITRATE O2 TOLERATED, AMBULATORY CONTINENT BOWEL AND BLADDER, ON TELE MONITOR SR WITH HR OF 82 WITH IV SITE ON LEFT HAND GAUGE 22 PATENT INFUSING WELL, PATIENT LAST DOSE OF REMDESIVER GIVEN NO ASE NOTED. WILL [id number] TO MONITOR, SAFETY MEASURE OBSERVED, BED WHEELS LOCK, CALL LIGHT WITHIN REACH. WILL ENDORSE TO NOC SHIFT.
--- NOTE | 2021-01-04 19:00 | NUR ---
RN OPENING NOTE RECEIVED PT AWAKE IN BED. A/OX4. PT STABLE ON 4L OXYGEN VIA NC, SR @82, NO SOB OR RESPIRATORY DISTRESS NOTED. NO C/O PAIN AT THIS TIME. IV ACCESS IN L FOREARM G#20. IV IS INTACT, PATENT AND FLUSHING WELL. SAFETY MEASURES MAINTAINED AT ALL TIMES. BED IN LOWEST LOCKED POSITION, HOB ELEVATED, SIDE RAILS UPX2. CALL LIGHT AND TABLE WITHIN REACH. WILL CONTINUE WITH PLAN OF CARE.
[2021-01-04 20:23] VITALS: BP 124/81
[2021-01-04] MEDS: MONTELUKAST SODIUM (10MG) 10 MG TABLET PO SCH (21:28)
[2021-01-05] VITALS (7 sets, daily range): BP systolic 110–136; BP diastolic 64–81
[2021-01-05 05:58] LABS: BASOPHILS % (AUTO) 0.1 % (0.0-2.0); EOSINOPHILS % (AUTO) 0.1 % (0.0-6.0); HEMATOCRIT 37 % (33-45); HEMOGLOBIN 12.9 g/dL (11.5-14.8); LYMPHOCYTES # (AUTO) 1.1 K/uL (0.8-4.8); LYMPHOCYTES % (AUTO) 11.8 % (20.0-44.0); MEAN CORPUSCULAR HGB CONC 35 g/dl (31.0-36.0); MEAN CORPUSCULAR VOLUME 85 fL (82-100); MONOCYTES # (AUTO) 0.8 K/uL (0.1-1.30); MONOCYTES % (AUTO) 9.2 % (2.0-12.0); NEUTROPHILS # (AUTO) 7.2 K/uL (1.8-8.9); NEUTROPHILS % (AUTO) 78.8 % (43.0-81.0); PLATELET COUNT (AUTO) 320 K/uL (150-450); RED BLOOD CELL COUNT(AUTO) 4.37 MIL/uL (4.0-5.2); WHITE BLOOD COUNT (AUTO) 9.1 K/uL (4.3-11.0)
[2021-01-05 06:13] LABS: CALCIUM, SERUM 8.5 mg/dL (8.5-10.1); CREATININE 0.8 mg/dL (0.6-1.3); MAGNESIUM 2.4 mg/dL (1.8-2.4); PHOSPHORUS 4.5 mg/dL (2.5-4.9)
--- NOTE | 2021-01-05 06:30 | NUR ---
RN CLOSING NOTE PT IS IN BED, EASY TO AROUSE. A/OX4. PT IS STABLE ON OXYGEN WITH HUMIDIFIER 4L NC. NO SOB OR RESPIRATORY DISTRESS NOTED. PT IS BR. IV ACCESS IS INTACT, PATENT, AND FLUSHING WELL. ALL NEEDS HAVE BEEN MET. ALL CARE, NEEDS, MEDICATIONS, AND TREATMENT ADMINISTERED ANTICIPATED PER ORDER. PT ENCOURAGED TO REPOSITION Q2H AND PRN. SAFETY, SEIZURE, AND ASPIRATION PRECAUTIONS MAINTAINED AT ALL TIMES. BED IN LOWEST LOCKED POSITION, HOB ELEVATED, SIDE RAILS UP X2. CALL LIGHT AND TABLE WITHIN REACH. WILL ENDORSE TO ONCOMING NURSE FOR LUISA.
--- NOTE | 2021-01-05 07:54 | NUR ---
RN NOTE PATIENT IS IN BED WITH HOB AT SEMI FOWLERS POSITION. PATIENT IS ON 4L NC WITH NO SIGNS OF LABORED BREATHING. PATIENT IS AOX4. LFOREARM #20 IS PATENT AND INTACT. BED IS LOCKED IN THE LOWEST POSITION, 3 GUARD RAILS RAISED, CALL [place] WITHIN REACH, AND ALL HOSPITAL SAFETY PRECAUTIONS ARE BEING FOLLOWED. WILL CONTINUE OT MONITOR THROUGHOUT SHIFT.
[2021-01-05] MEDS: ASCORBIC ACID 500 MG TABLET PO SCH ×2 (08:29→16:44)
[2021-01-05] MEDS: DEXAMETHASONE SOD PHOSPHATE 10 MG/ML VIAL IV SCH (08:29)
[2021-01-05] MEDS: CHOLECALCIFEROL 1,000 UNIT TABLET (VIT D3) PO SCH (08:29)
[2021-01-05] MEDS: PANTOPRAZOLE 40 MG TABLET.DR PO SCH (08:29)
[2021-01-05] MEDS: ZINC SULFATE 220 MG CAPSULE PO SCH (08:29)
[2021-01-05] MEDS: COLCHICINE 0.6 MG TABLET PO SCH (08:29)
[2021-01-05] MEDS: ENOXAPARIN SODIUM 40 MG/0.4 ML DISP.SYRIN SQ SCH ×2 (08:33→21:15)
[2021-01-05] MEDS ORDERED: METH4TAB17 PO (09:55)
[2021-01-05 10:16] LABS: BAND % (MANUAL) 1 % (0.0-5.0); LYMPHOCYTES % (MANUAL) 13 % (16-48); MONOCYTES % (MANUAL) 9 % (0-11.0); NEUTROPHILS % (MANUAL) 77 (42-76)
[2021-01-05 11:26] LABS: ABG BASE EXCESS 2.3 mmol/L; ABG OXYGEN SATURATION 91.4 % (92.0-98.5); ABG PCO2 32.8 mmHg (35.0-45.0); ABG PH 7.499 (7.350-7.450); ABG PO2 58.9 mmHg (75.0-100.0); AaDO2 138.1 mmHg; COHb 0.4 % (0.5-1.5); MetHb 0.1 % (0.0-1.5); O2Hb 90.9 % (94.0-97.0); SITE, ABG Right Radial; VENT MODE, BG NASAL CANNULA
--- NOTE | 2021-01-05 18:45 | NUR ---
RN NOTE PATIENT IS IN BED WITH HOB AT SEMI FOWLERS POSITION. PATIENT IS ON 4L NC WITH NO SIGNS OF LABORED BREATHING. PATIENT IS AOX4. LFOREARM #20 IS PATENT AND INTACT. BED IS LOCKED IN THE LOWEST POSITION, 3 GUARD RAILS RAISED, CALL [place] WITHIN REACH, AND ALL HOSPITAL SAFETY PRECAUTIONS ARE BEING FOLLOWED. ALL DUE MEDS GIVEN AND PATIENT REMAINED STABLE THROUGHOUT SHIFT. WILL ENDORSE TO SALES SUPPORT TECHNICIAN RN.
--- NOTE | 2021-01-05 19:25 | NUR ---
RN OPENING NOTE PATIENT IN BED, AWAKE. PATIENT IS A/O X 4, ABLE TO MAKE NEEDS KNOWN. PATIENT IS CURRENTLY ON 4 L OF O2 SUPPLEMENTATION, BREATHING EVEN AND UNLABORED. NO REPORTS OF ANY PAIN. PATIENT'S IV ACCESS L FOREARM 20 G PATENT AND INTACT. SAFETY MEASURES IN PLACE: BED LOCKED AND IN LOWEST POSITION, CALL LIGHT WITHIN REACH, SIDE RAILS UP. ISOLATION PRECAUTIONS MAINTAINED. WILL MONITOR PATIENT CLOSELY.
[2021-01-05] MEDS: MONTELUKAST SODIUM (10MG) 10 MG TABLET PO SCH (21:17)
[2021-01-06] VITALS (7 sets, daily range): BP systolic 99–126; BP diastolic 64–76
--- NOTE | 2021-01-06 07:26 | NUR ---
RN CLOSING NOTE PATIENT IN BED SLEEPING, EASILY AWAKENED. PATIENT NOT IN ANY APPARENT DISTRESS. PATIENT IS ABLE TO MAKE NEEDS KNOWN. NO SIGNIFICANT CHANGES DURING THE SHIFT. ENDORSED TO RN COLLEEN FOR LUISA.
--- NOTE | 2021-01-06 07:30 | NUR ---
RN OPENING NOTES Patient was received in bed. On 4 lpm via n/c. HOB kept elevated. No s/s of respiratory distress. No c/o pain or discomfort. Iv site to left forearm noted with saline lock. Will continue to monitor. Call light with in reach.
[2021-01-06] MEDS: PANTOPRAZOLE 40 MG TABLET.DR PO SCH (09:40)
[2021-01-06] MEDS: CHOLECALCIFEROL 1,000 UNIT TABLET (VIT D3) PO SCH (09:40)
[2021-01-06] MEDS: ASCORBIC ACID 500 MG TABLET PO SCH ×2 (09:40→17:07)
[2021-01-06] MEDS: ZINC SULFATE 220 MG CAPSULE PO SCH (09:40)
[2021-01-06] MEDS: DEXAMETHASONE SOD PHOSPHATE 10 MG/ML VIAL IV SCH (09:40)
[2021-01-06] MEDS: COLCHICINE 0.6 MG TABLET PO SCH (09:40)
[2021-01-06] MEDS: ENOXAPARIN SODIUM 40 MG/0.4 ML DISP.SYRIN SQ SCH ×2 (09:55→21:01)
--- NOTE | 2021-01-06 19:15 | NUR ---
RN CLOSING NOTES Patient was received in bed. On 4 lpm via n/c. HOB kept elevated. No s/s of respiratory distress. No c/o pain or discomfort. Iv site to right hand noted with saline lock. Will continue to monitor. Call light with in reach.Endorsed to next shift for LUISA.
--- NOTE | 2021-01-06 20:00 | NUR ---
RN OPENING NOTES Patient is A&Ox4. VSS. States she is feeling okay, better than the day prior. Reports having no needs at this time. Denies SOB agreeable to start weaning off O2. Lowered to 3L O2 93% at this time. continue with vital signs q4h. Monitor closely. No signs of distress. patient is able to make needs known.
[2021-01-06] MEDS: MONTELUKAST SODIUM (10MG) 10 MG TABLET PO SCH (21:00)
[2021-01-07] VITALS: BP 102/60
[2021-01-07 04:00] VITALS: BP 105/65
--- NOTE | 2021-01-07 06:20 | NUR ---
MS REED CLOSING NOTES Patient is awake A&Ox1 sitting calmly in bed. NO events since admission. Calm and cooperative with care. VSS. Addendum: 01/07/21 at 0622 by GAURAV FONTENOT RN error wrong patient.
--- NOTE | 2021-01-07 06:22 | NUR ---
RN CLOSING NOTES Patient is A&Ox4. stable overnight. Able to wean o2 to 2L via NC tolerating well O2 >94%. No overnight events. Patient denies SOB or any kind of distress.
--- NOTE | 2021-01-07 06:22 | NUR ---
last entry on wrong patient error
--- NOTE | 2021-01-07 07:57 | NUR ---
PARA MACHINE OPERATOR OPENING NOTES RECEIVED PATIENT AWAKE IN BED. ALERT AND ORIENTED X4. NO SIGNS OR SYMPTOMS OF DISTRESS NOTED. BREATHING IS EVEN AND UNLABORED. NO COMPLAINTS OF PAIN AT THIS TIME. IV ACCESS RHAND#20 PATENT, INTACT AND FLUSHING WELL. PATIENT IS CURRENTLY ON NC 2L WITH SPO2 SATURATING AT 94%. PATIENT ON EXTERNAL TELE MONITOR WITH READING SR HR 86. PATIENT IS ABLE TO MAKE NEEDS KNOWN. SAFETY MEASURES ARE IN PLACE WITH BED LOCKED AT LOW POSITION, SIDE RAILS UP X 2. WILL CONTINUE TO MONITOR THROUGHOUT SHIFT.
[2021-01-07 08:00] VITALS: BP 102/63
[2021-01-07] MEDS: ENOXAPARIN SODIUM 40 MG/0.4 ML DISP.SYRIN SQ SCH ×2 (08:20→21:49)
[2021-01-07] MEDS: PANTOPRAZOLE 40 MG TABLET.DR PO SCH (08:22)
[2021-01-07] MEDS: DEXAMETHASONE SOD PHOSPHATE 10 MG/ML VIAL IV SCH (09:04)
[2021-01-07] MEDS: CHOLECALCIFEROL 1,000 UNIT TABLET (VIT D3) PO SCH (09:04)
[2021-01-07] MEDS: ZINC SULFATE 220 MG CAPSULE PO SCH (09:05)
[2021-01-07] MEDS: COLCHICINE 0.6 MG TABLET PO SCH (09:05)
[2021-01-07] MEDS: ASCORBIC ACID 500 MG TABLET PO SCH ×2 (09:05→16:40)
[2021-01-07 12:00] VITALS: BP 113/63
[2021-01-07 16:00] VITALS: BP 115/78
--- NOTE | 2021-01-07 17:00 | NUR ---
INSTRUCTIONAL SUPPORT SPECIALIST NOTES PATIENT WAS SEEN AT BEDSIDE BY DR. MARC GOMEZ, GYMNASIUM TEACHER WITH NO NEW ORDERS. FAMILY UPDATED WITH STATUS.
--- NOTE | 2021-01-07 18:52 | NUR ---
PROTECTION MANAGER CLOSING NOTES PATIENT IS IN BED, RESTING COMFORTABLY. ALL NEEDS MET THROUGHOUT SHIFT. NO SIGNS OR SYMPTOMS OF DISTRESS NOTED. SAFETY MEASURES MAINTAINED WITH BED AT LOW POSITION AND SIDE RAILS UP X 2. CALL LIGHT IS WITHIN REACH. WILL ENDORSE CONTINUITY OF CARE TO ONCOMING SHIFT.
--- NOTE | 2021-01-07 19:15 | NUR ---
TELE/RN OPENING NOTE RECEIVED PATIENT RESTING IN BED. AWAKE, ALERT AND ORIENTED X 4. ABLE TO MAKE NEEDS KNOWN. DENIES PAIN AT THIS TIME. CONTINUES ON 2L O2 VIA NC WITH NO S/SX OF RESPIRATORY DISTRESS NOTED. CONTINUES ON TELE MONITOR WITH CURRENT READING SR. IV ACCESS TO RIGHT HAND #20G INTACT, PATENT AND SALINE LOCKED. CALL LIGHT WITHIN REACH. ASPIRATION, FALL AND SAFETY PRECAUTIONS MAINTAINED. WILL CONTINUE TO MONITOR.
[2021-01-07 20:00] VITALS: BP 120/78
[2021-01-07] MEDS: MONTELUKAST SODIUM (10MG) 10 MG TABLET PO SCH (21:48)
[2021-01-08] VITALS: BP 113/75
[2021-01-08 04:00] VITALS: BP 139/95
--- NOTE | 2021-01-08 06:10 | NUR ---
TELE/RN CLOSING NOTE PATIENT CURRENTLY SLEEPING IN BED. ALERT AND ORIENTED X 4. ABLE TO MAKE NEEDS KNOWN. DENIES PAIN AT THIS TIME. CONTINUES ON 2L O2 VIA NC WITH NO S/SX OF RESPIRATORY DISTRESS NOTED. CONTINUES ON TELE MONITOR WITH CURRENT READING SR. IV ACCESS TO RIGHT HAND #20G INTACT, PATENT AND SALINE LOCKED. CALL LIGHT WITHIN REACH. ASPIRATION, FALL AND SAFETY PRECAUTIONS MAINTAINED. WILL ENDORSE PLAN OF CARE TO ONCOMING SHIFT.
--- NOTE | 2021-01-08 07:31 | NUR ---
TELE/RN OPENING NOTE RECEIVED PATIENT IN BED. ALERT AND ORIENTED X 4. ABLE TO MAKE NEEDS KNOWN. DENIES PAIN AT THIS TIME. CONTINUES ON 2L O2 VIA NC WITH NO S/SX OF RESPIRATORY DISTRESS NOTED. CONTINUES ON TELE MONITOR WITH CURRENT READING SR. IV ACCESS TO RIGHT HAND #20G INTACT, PATENT AND SALINE LOCKED. CALL LIGHT WITHIN REACH. ASPIRATION, FALL AND SAFETY PRECAUTIONS MAINTAINED. WILL CONTINUE TO MONITOR PATIENT
[2021-01-08] MEDS: DEXAMETHASONE SOD PHOSPHATE 10 MG/ML VIAL IV SCH (08:11)
[2021-01-08] MEDS: COLCHICINE 0.6 MG TABLET PO SCH (08:12)
[2021-01-08] MEDS: ASCORBIC ACID 500 MG TABLET PO SCH ×2 (08:12→16:28)
[2021-01-08] MEDS: ZINC SULFATE 220 MG CAPSULE PO SCH (08:12)
[2021-01-08] MEDS: CHOLECALCIFEROL 1,000 UNIT TABLET (VIT D3) PO SCH (08:12)
[2021-01-08] MEDS: PANTOPRAZOLE 40 MG TABLET.DR PO SCH (08:12)
[2021-01-08] MEDS: ENOXAPARIN SODIUM 40 MG/0.4 ML DISP.SYRIN SQ SCH ×2 (08:13→21:04)
[2021-01-08 10:08] VITALS: BP 121/76
[2021-01-08 12:10] VITALS: BP 121/76
[2021-01-08 17:23] VITALS: BP 112/65
--- NOTE | 2021-01-08 18:49 | NUR ---
TELE/RN CLOSING NOTE PATIENT IN BED. ALERT AND ORIENTED X 4. ABLE TO MAKE NEEDS KNOWN. DENIES PAIN AT THIS TIME. CONTINUES ON 2L O2 VIA NC WITH NO S/SX OF RESPIRATORY DISTRESS NOTED. CONTINUES ON TELE MONITOR WITH CURRENT READING SR. IV ACCESS TO RIGHT HAND #20G INTACT, PATENT AND SALINE LOCKED. CALL LIGHT WITHIN REACH. ASPIRATION, FALL AND SAFETY PRECAUTIONS MAINTAINED. WILL ENDORSE TO THE NEXT SHIFT FOR CONTINUITY OF CARE.
--- NOTE | 2021-01-08 19:30 | NUR ---
RN NOTE RECEIVED PATENT IN BED. A/OX4. ON OXYGEN 2L/MIN VIA NASAL CANNULA. RESPIRATIONS ARE EVEN AND UNLABORED. NO S/S SOB NOTED. NO C/O PAIN AT THIS TIME. IN NO APPARENT DISTRESS. EXTERNAL LEELEE MONITOR READS SINUS RHYTHM. IV ACCESS IN RIGHT HAND#20 PATENT AND SALINE LOCKED. BED IS LOW AND LOCKED, HOB ELEVATED IN SEMI FOWLERS, SIDE RAILS UP X2, AMADA LIGHT WITHIN REACH. WILL CONTINUE TO MONITOR THROUGHOUT SHIFT.
[2021-01-08 20:00] VITALS: BP 122/77
[2021-01-08] MEDS: MONTELUKAST SODIUM (10MG) 10 MG TABLET PO SCH (21:03)
[2021-01-09] VITALS: BP 127/75
[2021-01-09 04:00] VITALS: BP 116/70
--- NOTE | 2021-01-09 06:19 | NUR ---
RN NOTE PATENT RESTING IN BED. A/OX4. REMAINS ON OXYGEN 2L/MIN VIA NASAL CANNULA.NO RESP DISTRESS.NO PAIN. NO DISTRESS. TELE MONITOR IS SINUS RHYTHM. IV IN RIGHT HAND#20. BED IS LOW AND LOCKED, HOB ELEVATED IN SEMI FOWLERS, SIDE RAILS UP X2, AMADA LIGHT WITHIN REACH. WILL ENDORSE TOO COMING SHIFT.
--- NOTE | 2021-01-09 07:00 | NUR ---
RN NOTE RECEIVED PATENT ON BED. A/OX4. ON OXYGEN 2L/MIN VIA NASAL CANNULA. RESPIRATIONS ARE EVEN AND UNLABORED. NO S/S SOB NOTED. NO C/O PAIN AT THIS TIME. IN NO APPARENT DISTRESS. ON TELE SR HR IN 70'S , IV ACCESS IN RIGHT HAND#20 PATENT AND SALINE LOCKED. BED IS LOW AND LOCKED, HOB ELEVATED , SIDE RAILS UP X3, AMADA LIGHT WITHIN REACH. WILL CONTINUE TO MONITOR .
[2021-01-09 08:00] VITALS: BP 114/67
[2021-01-09] MEDS: ASCORBIC ACID 500 MG TABLET PO SCH ×2 (08:26→16:57)
[2021-01-09] MEDS: DEXAMETHASONE SOD PHOSPHATE 10 MG/ML VIAL IV SCH (08:26)
[2021-01-09] MEDS: ZINC SULFATE 220 MG CAPSULE PO SCH (08:26)
[2021-01-09] MEDS: COLCHICINE 0.6 MG TABLET PO SCH (08:26)
[2021-01-09] MEDS: CHOLECALCIFEROL 1,000 UNIT TABLET (VIT D3) PO SCH (08:26)
[2021-01-09] MEDS: PANTOPRAZOLE 40 MG TABLET.DR PO SCH (08:26)
[2021-01-09] MEDS: ENOXAPARIN SODIUM 40 MG/0.4 ML DISP.SYRIN SQ SCH (08:27)
[2021-01-09 12:00] VITALS: BP 117/72
[2021-01-09 13:22] LABS: ABG BASE EXCESS -1.5 mmol/L; ABG OXYGEN SATURATION 93.4 % (92.0-98.5); ABG PCO2 32.1 mmHg (35.0-45.0); ABG PH 7.446 (7.350-7.450); ABG PO2 66.6 mmHg (75.0-100.0); AaDO2 95.2 mmHg; COHb 0.1 % (0.5-1.5); MetHb 0.4 % (0.0-1.5); O2Hb 92.9 % (94.0-97.0); SITE, ABG Right Radial; VENT MODE, BG nasal cannula
[2021-01-09 16:00] VITALS: BP 128/89
--- NOTE | 2021-01-09 16:00 | NUR ---
RN NOTES PT'S HR IS AT 110'S ,WHEN SHE IS UP AND WALKING, DR ADAMES NOTIFIED .
--- NOTE | 2021-01-09 16:30 | NUR ---
RN NOTES REPORT GIVEN TO [facility] AT [facility] FOR CONTINUITY OF CARE ,
--- NOTE | 2021-01-09 17:15 | NUR ---
RN NOTES PT'S HR IN 80'S , SR Michael ROSALES RN NOITFED AT [facility], PT LEFT THE FLOOR TO SNF VIA AMBIANCE IN STABLE CONDITION, IV SITE D/MARGARITA , VSS STABLE. NO DISTRESS NOTED.
== END 2021-01-09 17:16 | DRG 177 ==
LOC: ER 17:31 → TELE1 21:27
PROVIDERS: ADMIT Internal Medicine; ATTEND Internal Medicine
PROC: XW033E5 Introduction of Remdesivir Anti-infective into Peripheral Vein, Percutaneous Approach, New Technology Group 5 (ICD-10-PCS; principal; 2021-01-01)
DX: U07.1 COVID-19 (principal); J96.01 Acute respiratory failure with hypoxia; J12.82 Pneumonia due to coronavirus disease 2019; E66.9 Obesity, unspecified; Z68.29 Body mass index [BMI] 29.0-29.9, adult; D72.819 Decreased white blood cell count, unspecified; Z83.3 Family history of diabetes mellitus; Z98.890 Other specified postprocedural states; R73.9 Hyperglycemia, unspecified; D72.810 Lymphocytopenia
CPT/HCPCS: 36415; 36600; 71045-TC; 80048-TC; 80053-TC; 80076-TC; 81001; 82550-TC; 82728-TC; 82803-TC; 83605-TC; 83615-TC; 83735-TC; 83880; 84100-TC; 84484-TC; 85025-TC; 85378-TC; 85385-TC; 85610-TC; 85730-TC; 86140-TC; 87040-TC; 87081-TC; 87086-TC; 94799-TC; 97116-TC; 97530-TC; A4216; G0378; J0456; J1100; J1650; J2405; J7030; J7050; J7060; U0003